=== PATIENT | female | born 1945 | race Caucasian/White ===

== ENCOUNTER 2017-09-27 08:30 | Inpatient (IN) ==
[2017-09-24 16:33] LABS: Appearance,Urine CLEAR; Bacteria,Urine FEW /hpf (0); Bilirubin,Urine NEG (NEG); Color,Urine YELLOW; Glucose,Urine (UA) NEGATIVE (NEG); Leukocyte Esterase,Urine NEG /uL (NEG); Mucus,Urine FEW /hpf (0); Nitrate,Urine POS (NEG); Protein,Urine NEG (NEG); Specific Gravity,Urine 1.019 (1.000-1.035); Urine Blood NEG mg/dL (<0.03); Urine RBC 1 /hpf (0-1); Urine Squamous Epithelial Cell < 1 /hpf (0-4); Urine WBC 5 /hpf (0-4); Urobilinogen,Urine NEG (NEG)
[2017-09-24 17:29] LABS: Basophils # (Auto) 0.1 K/mcL (0.0-0.3); Basophils % (Auto) 0.7 % (0.0-2.0); Eosinophils # (Auto) 0.2 K/mcL (0.0-0.7); Eosinophils % (Auto) 3.3 % (0.0-7.0); Granulocytes % (Auto) 65.7 % (38.0-78.0); Lymphocytes # (Auto) 1.7 K/mcL (1.5-4.8); Lymphocytes % (Auto) 23.2 % (15.5-49.0); Mean Cell Volume 86.9 fL (80.0-100.0); Mean Corpuscular HGB Conc 34.3 g/dL (31.0-36.0); Mean Corpuscular Hemoglobin 29.8 pg (26.0-34.0); Monocytes # (Auto) 0.5 K/mcL (0.1-0.9); Monocytes % (Auto) 7.1 % (1.0-12.0); Platelet Count 234 K/mcL (140-440); RBC 4.49 M/mcL (4.00-5.20); Red Cell Distribution Width 12.4 % (11.5-14.5)
[2017-09-24 17:32] LABS: Blood Urea Nitrogen 15 mg/dl (8-23)
[~2017-09-27 08:30] MED LIST: 0.9 % SODIUM CHLORIDE 250 ML IV SCH; CELECOXIB 200 MG CAPSULE PO SCH; KETOROLAC 30 MG, ROPIVACAINE HCL/PF 49.5 ML, EPINEPHrine 0.5 MG, 0.9 % SODIUM CHLORIDE ... IJ SCH; PREGABALIN 75 MG CAPSULE PO SCH; ceFAZolin 1 GM VIAL IV SCH; oxyCODONE 10 MG TAB.ER.12H PO SCH
[2017-09-27 11:25] LABS: Appearance,Urine HAZY; Bacteria,Urine 0 /hpf (0); Bilirubin,Urine NEG (NEG); Color,Urine YELLOW; Glucose,Urine (UA) NEGATIVE (NEG); Leukocyte Esterase,Urine NEG /uL (NEG); Mucus,Urine FEW /hpf (0); Nitrate,Urine NEG (NEG); Protein,Urine NEG (NEG); Specific Gravity,Urine 1.024 (1.000-1.035); Urine Amorphous Crystals FEW /hpf (0); Urine Blood NEG mg/dL (<0.03); Urine RBC 1 /hpf (0-1); Urine Squamous Epithelial Cell < 1 /hpf (0-4); Urine WBC 1 /hpf (0-4); Urobilinogen,Urine NEG (NEG)
[2017-09-27] MEDS ORDERED: rOPINIRole 0.25 MG TABLET PO ONE (12:27)
[2017-09-27] MEDS ORDERED: MIDAZOLAM 2 MG/2 ML VIAL IV ONE (14:15)
[2017-09-27] MEDS ORDERED: ONDANSETRON 4 MG/2 ML VIAL IV ONE (14:15)
[2017-09-27] MEDS ORDERED: GLYCOPYRROLATE 0.2 MG/ML VIAL IV ONE (14:15)
[2017-09-27] MEDS ORDERED: DEXAMETHASONE 10 MG/ML VIAL IV ONE (14:15)
[2017-09-27] MEDS ORDERED: BUPIVACAINE PF 0.5% 30 ML VIAL IJ ONE (14:15)
[2017-09-27] MEDS ORDERED: PROPOFOL 200 MG/20 ML VIAL IV ONE (14:15)
[2017-09-27] MEDS ORDERED: PHENYLEPHRINE 10 MG/ML VIAL IV ONE (14:15)
[2017-09-27] MEDS ORDERED: TRANEXAMIC ACID 1,000 MG/10 ML VIAL IV ONE (14:15)
[2017-09-27] MEDS ORDERED: KETAMINE 100 MG/ML ML IV ONE (14:15)
[2017-09-27] MEDS ORDERED: LIDOCAINE HCL/PF 100 MG/5 ML SYRINGE IV ONE (14:15)
[2017-09-27] MEDS ORDERED: ePHEDrine 50 MG/ML AMPUL IV ONE (14:15)
[2017-09-27] MEDS ORDERED: GENTAMICIN SULFATE 800 MG/20 ML VIAL IR ONE (14:35)
[2017-09-27] MEDS ORDERED: PROMETHAZINE 25 MG/ML VIAL IV PRN (15:19)
[2017-09-27] MEDS ORDERED: LACTATED RINGERS 250 ML IV PRN (15:19)
[2017-09-27] MEDS ORDERED: MEPERIDINE 25 MG/ML SYRINGE IV PRN (15:19)
[2017-09-27] MEDS ORDERED: fentaNYL 100 MCG/2 ML VIAL IV PRN (15:19)
[2017-09-27] MEDS ORDERED: ONDANSETRON 4 MG/2 ML VIAL IV PRN ×2 (15:19→15:55)
[2017-09-27] MEDS ORDERED: IPRATROPIUM/ALBUTEROL 3 ML AMPUL.NEB NEB PRN (15:19)
[2017-09-27] MEDS ORDERED: NALOXONE HCL 0.4 MG/ML VIAL IV PRN (15:19)
[2017-09-27] MEDS ORDERED: ACETAMINOPHEN 1,000 MG/100 ML BOTTLE IV ONE (15:19)
[2017-09-27] MEDS ORDERED: FLUMAZENIL 0.1 MG/ML ML IV PRN (15:19)
[2017-09-27] MEDS ORDERED: LACTATED RINGERS 1,000 ML IV SCH (15:30)
[2017-09-27] MEDS ORDERED: ALBUTEROL SULFATE 1 PUFF INHALER INH PRN (15:53)
--- NOTE | 2017-09-27 15:53 | Brief Operative Note ---
Date of procedure: 09/27/17 Pre-op diagnosis: right knee oa Post-op diagnosis: same Procedure: right total knee arthroplasty Grafts/Implants: Yes Anesthesia: spinal Complications: none Surgeon: Hubert Mckeon Apparel Fashion Designer: Vangie Jones Estimated blood loss (cc): 150 Tourniquet Time (Minutes): 63 Specimens Removed/Pathology: none sent Condition: stable Disposition: PACU
[2017-09-27] MEDS ORDERED: HYDROmorphone 2 MG/ML SYRINGE IV PRN (15:55)
[2017-09-27] MEDS ORDERED: DEXTROSE 50% 50 ML VIAL IV PRN (15:55)
[2017-09-27] MEDS ORDERED: BENZOCAINE/MENTHOL 1 LOZENGE PO PRN (15:55)
[2017-09-27] MEDS ORDERED: DEXTROSE 31 GM ORAL.SUSP PO PRN (15:55)
[2017-09-27] MEDS ORDERED: POLYETHYLENE GLYCOL 3350 17 GM PACKET PO PRN (15:55)
[2017-09-27] MEDS ORDERED: FLEETS ADULT ENEMA PR PRN (15:55)
[2017-09-27] MEDS ORDERED: MAGNESIUM HYDROXIDE 30 ML ORAL.SUSP PO PRN (15:55)
[2017-09-27] MEDS ORDERED: BISACODYL 10 MG SUPP.RECT PR PRN (15:55)
[2017-09-27] MEDS ORDERED: TRANEXAMIC ACID 1,000 MG/10 ML VIAL IV SCH (15:55)
--- NOTE | 2017-09-27 16:56 | XRay Report ---
CLINICAL INFORMATION: Postop total knee prostheses COMPARISON: None. FINDINGS: Total knee prostheses is anatomically aligned. There is no osseous abnormality. Periarticular gas and soft tissue swelling seen - as expected IMPRESSION: Negative Interpreted and Authenticated by: Hubert Dover 09/27/17
[2017-09-27] MEDS: 0.9 % SODIUM CHLORIDE 1,000 ML IV SCH (17:27)
[2017-09-27] MEDS: INSULIN LISPRO 1 UNIT/0.01 ML UNIT SQ SCH ×2 (17:27→21:36)
[2017-09-27] MEDS: metFORMIN 500 MG TABLET PO SCH (17:28)
[2017-09-27] MEDS: KETOROLAC 15 MG/ML VIAL IV SCH (17:29)
[2017-09-27] MEDS: DOCUSATE SODIUM 100 MG CAPSULE PO SCH (21:37)
[2017-09-27] MEDS: SENNOSIDES 1 TABLET PO SCH (21:37)
[2017-09-27] MEDS: ceFAZolin 1 GM VIAL IV SCH (21:38)
[2017-09-27] MEDS: ASPIRIN 325 MG ENTERIC COATED TABLET PO SCH (21:38)
[2017-09-27] MEDS: 0.9 % SODIUM CHLORIDE 10 ML SYRINGE IV SCH (21:39)
[2017-09-27] MEDS: HYDROcodone/APAP 10/325MG TABLET PO PRN (21:40)
[2017-09-28] MEDS: 0.9 % SODIUM CHLORIDE 1,000 ML IV SCH ×3 (00:19→14:37)
[2017-09-28] MEDS: KETOROLAC 15 MG/ML VIAL IV SCH ×4 (00:24→17:08)
[2017-09-28] MEDS: ceFAZolin 1 GM VIAL IV SCH (05:18)
[2017-09-28] MEDS: 0.9 % SODIUM CHLORIDE 10 ML SYRINGE IV SCH ×3 (05:18→20:48)
[2017-09-28] MEDS: METHOCARBAMOL 750 MG TABLET PO PRN ×2 (05:18→21:27)
[2017-09-28] MEDS: GLIMEPIRIDE 2 MG TABLET PO SCH (07:12)
[2017-09-28] MEDS: INSULIN LISPRO 1 UNIT/0.01 ML UNIT SQ SCH ×4 (07:12→20:48)
[2017-09-28] MEDS: metFORMIN 500 MG TABLET PO SCH ×2 (07:12→17:08)
--- NOTE | 2017-09-28 08:27 | Orthopedic Progress Note ---
Subjective Patient information: Note initiated : 09/28/17 at 8:26 am Service Date, if different from initiated Date: [] Patient: Dee Montes 72 y/o F admitted on 09/27/17 for Total Knee Arthroplasty - Right. Chief Complaint: [] Interval history: doing ok today. some pain Objective Vital signs: Vital Signs Temp Pulse Resp BP BP Pulse Ox 09/28/17 07:37 98.2 F 12 122/66 96 09/28/17 04:48 97.4 F 108 H 18 130/68 98 09/28/17 02:05 17 94 09/28/17 00:47 97.2 F 112 H 17 132/72 94 09/27/17 20:00 92 09/27/17 19:25 97.2 F 108 H 18 132/66 92 09/27/17 19:15 97.2 F 108 H 19 150/76 94 09/27/17 19:00 108 H 17 153/81 94 09/27/17 18:45 108 H 17 155/78 95 09/27/17 18:15 110 H 17 146/73 94 09/27/17 18:00 105 H 18 146/78 96 09/27/17 17:51 134/66 96 09/27/17 17:45 136/76 96 09/27/17 17:15 146/76 95 09/27/17 17:00 96.4 F L 12 132/66 92 09/27/17 16:46 105 H 14 130/70 98 09/27/17 16:41 105 H 12 114/62 100 09/27/17 16:36 103 H 13 120/59 96 09/27/17 16:21 104 H 13 130/64 96 09/27/17 16:16 100 H 12 115/60 95 09/27/17 16:11 98 H 12 102/57 97 09/27/17 16:06 97.9 F 99 H 12 114/54 97 09/27/17 10:07 97.9 F 96 H 18 165/78 93 Intake and Output 09/27/17 09/28/17 09/28/17 21:59 05:59 13:59 Intake Total 1400 / 1400 650 / 650 Output Total 327 / 327 Balance 1400 / 1400 323 / 323 Intake: IV 1400 / 1400 Lactated Ringers 1,000 ml @ 20 1300 / 1300 mls/hr IV .Q24H SYLVIE Rx#: [id number] Oral 650 / 650 Output: Void Amount 325 / 325 # of times incontinent of urine 2 / 2 Other: # Voids 1 Weight 245 lb 8 oz Intake & Output: Intake & Output 09/27/17 09/28/17 09/28/17 21:59 05:59 13:59 Intake Total 1400 / 1400 650 / 650 Output Total 327 / 327 Balance 1400 / 1400 323 / 323 Weight 245 lb 8 oz Intake: IV 1400 / 1400 Lactated Ringers 1,000 ml @ 20 1300 / 1300 mls/hr IV .Q24H SYLVIE Rx#: [id number] Oral 650 / 650 Output: Void Amount 325 / 325 # of times incontinent of urine 2 / 2 Other: # Voids 1 Incision: Yes healing Incision clean and dry: Yes Dressing: Yes clean, Yes dry, Yes intact Weight bearing status: full Neurological exam IM: Yes abnormal gait, Yes alert, Yes oriented X3, Yes motor sensory intact, Yes neurovascular intact Extremities exam IM: No calf tenderness, Yes joint swelling, Yes Foot pink and warm, Yes neurovascular intact - Labs CBC & BMP: 09/28/17 05:06 09/24/17 15:03 Labs: Orthopedic Labs 09/24/17 15:03 PT 12.1 INR 0.9 09/28/17 09/24/17 05:06 15:03 Hgb 12.1 13.4 Hct 35.9 L 39.0
[2017-09-28] MEDS ORDERED: rOPINIRole 0.25 MG TABLET PO SCH ×2 (09:00→21:00)
[2017-09-28] MEDS: ASPIRIN 325 MG ENTERIC COATED TABLET PO SCH ×2 (09:11→20:48)
[2017-09-28] MEDS: HYDROcodone/APAP 10/325MG TABLET PO PRN ×3 (09:11→20:48)
[2017-09-28] MEDS: DOCUSATE SODIUM 100 MG CAPSULE PO SCH ×2 (09:11→20:48)
[2017-09-28] MEDS: rOPINIRole 0.25 MG TABLET PO SCH (09:11)
[2017-09-28] MEDS: LOSARTAN 50 MG TABLET PO SCH (09:11)
[2017-09-28] MEDS: HYDROCHLOROTHIAZIDE 25 MG TABLET PO SCH (09:12)
[2017-09-28] MEDS: PARoxetine 20 MG TABLET PO SCH (09:12)
[2017-09-28] MEDS: SENNOSIDES 1 TABLET PO SCH (20:46)
[2017-09-29] MEDS: KETOROLAC 15 MG/ML VIAL IV SCH ×3 (00:30→12:37)
[2017-09-29] MEDS: 0.9 % SODIUM CHLORIDE 1,000 ML IV SCH ×3 (00:30→16:40)
[2017-09-29] MEDS: HYDROcodone/APAP 10/325MG TABLET PO PRN ×5 (03:22→20:51)
[2017-09-29] MEDS: METHOCARBAMOL 750 MG TABLET PO PRN ×2 (04:32→12:37)
[2017-09-29] MEDS: 0.9 % SODIUM CHLORIDE 10 ML SYRINGE IV SCH ×3 (06:36→20:52)
[2017-09-29] MEDS: INSULIN LISPRO 1 UNIT/0.01 ML UNIT SQ SCH ×4 (07:35→20:52)
[2017-09-29] MEDS: metFORMIN 500 MG TABLET PO SCH ×2 (07:36→17:42)
[2017-09-29] MEDS: HYDROCHLOROTHIAZIDE 25 MG TABLET PO SCH (08:13)
[2017-09-29] MEDS: rOPINIRole 0.25 MG TABLET PO SCH ×4 (08:13→20:51)
[2017-09-29] MEDS: LOSARTAN 50 MG TABLET PO SCH (08:13)
[2017-09-29] MEDS: GLIMEPIRIDE 2 MG TABLET PO SCH (08:14)
[2017-09-29] MEDS: PARoxetine 20 MG TABLET PO SCH (08:14)
[2017-09-29] MEDS: DOCUSATE SODIUM 100 MG CAPSULE PO SCH ×2 (08:14→20:50)
[2017-09-29] MEDS: ASPIRIN 325 MG ENTERIC COATED TABLET PO SCH ×2 (08:14→20:51)
--- NOTE | 2017-09-29 08:44 | Orthopedic Progress Note ---
Subjective Patient information: Note initiated : 09/29/17 at 8:42 am Service Date, if different from initiated Date: [] Patient: Dee Montes 72 y/o F admitted on 09/27/17 for Total Knee Arthroplasty - Right. Chief Complaint: [] Interval history: more painful today. feels a little groggy Objective Vital signs: Vital Signs Temp Pulse Resp BP BP BP Pulse Ox 09/29/17 06:29 97.8 F 18 136/72 98 09/29/17 03:30 97 F 99 H 18 144/76 92 09/29/17 00:00 97.2 F 96 H 18 129/75 98 09/28/17 20:00 98.6 F 95 H 18 133/84 93 09/28/17 16:00 98.6 F 102 H 16 103/72 95 09/28/17 11:15 97.8 F 18 105/54 94 Intake and Output 09/28/17 09/29/17 09/29/17 21:59 05:59 13:59 Intake Total 1070 / 1070 600 / 600 320 / 320 Output Total 400 / 400 750 / 750 750 / 750 Balance 670 / 670 -150 / -150 -430 / -430 Intake: Oral 1070 / 1070 600 / 600 320 / 320 Output: Void Amount 400 / 400 750 / 750 750 / 750 Other: Meal Dinner Breakfast Percent of Meal Consumed 100% 100% Feeding Ability Independent Independent # Voids 1 1 Weight 245 lb 8 oz Intake & Output: Intake & Output 09/28/17 09/29/17 09/29/17 21:59 05:59 13:59 Intake Total 1070 / 1070 600 / 600 320 / 320 Output Total 400 / 400 750 / 750 750 / 750 Balance 670 / 670 -150 / -150 -430 / -430 Weight 245 lb 8 oz Intake: Oral 1070 / 1070 600 / 600 320 / 320 Output: Void Amount 400 / 400 750 / 750 750 / 750 Other: Meal Dinner Breakfast Percent of Meal Consumed 100% 100% Feeding Ability Independent Independent # Voids 1 1 Incision: Yes healing Incision clean and dry: Yes Dressing: Yes clean, Yes dry, Yes intact Weight bearing status: full Neurological exam IM: Yes abnormal gait, Yes alert, Yes oriented X3, Yes motor sensory intact, Yes neurovascular intact Extremities exam IM: No calf tenderness, Yes Foot pink and warm, Yes neurovascular intact - Labs CBC & BMP: 09/29/17 04:40 09/24/17 15:03 Labs: Orthopedic Labs 09/24/17 15:03 PT 12.1 INR 0.9 09/29/17 09/28/17 09/24/17 04:40 05:06 15:03 Hgb 10.7 L 12.1 13.4 Hct 31.7 L 35.9 L 39.0 Assessment and Plan (1) Knee osteoarthritis pod 2 s/p tka wbat pain control dvt prophylaxis d/c planning - rehab when bed available Status: Acute
--- NOTE | 2017-09-29 08:45 | Discharge Summary ---
Ortho Discharge - TKA - Patient Instructions Diet: Regular Diet Activity: activity as tolerated, ambulate with assistive device, weight bearing as tolerated Total Knee Protocol: For Total Knee: Start ROM DENIA with stationary bike or rocking chair. Work on gaining full extension of knee. Posterior dislocation precautions provided. Hip abductor strengthening and gait training instructions provided. Apply Cryocuff as instructed. Dressing Care: Aquacel Ag - leave on for 5 days - Problem Maintenance (1) Knee osteoarthritis Status: Acute - Follow Up Plan Follow Up Appointments: Hubert Mckeon MD [Physician] - 10/09/17 10:30 am Disposition: Xfer SNF Prognosis: Good Rehab Potential: Good I certify that the patient requires SNF services: Yes Overall status at discharge: patient is progressing back to baseline
[2017-09-29] MEDS: SENNOSIDES 1 TABLET PO SCH (20:51)
[2017-09-30] MEDS: 0.9 % SODIUM CHLORIDE 1,000 ML IV SCH (00:12)
[2017-09-30] MEDS: 0.9 % SODIUM CHLORIDE 10 ML SYRINGE IV SCH ×3 (05:46→20:44)
[2017-09-30] MEDS: HYDROcodone/APAP 10/325MG TABLET PO PRN ×4 (06:12→20:23)
[2017-09-30] MEDS: LOSARTAN 50 MG TABLET PO SCH (07:53)
[2017-09-30] MEDS: HYDROCHLOROTHIAZIDE 25 MG TABLET PO SCH (07:54)
[2017-09-30] MEDS: PARoxetine 20 MG TABLET PO SCH (07:54)
[2017-09-30] MEDS: metFORMIN 500 MG TABLET PO SCH ×2 (07:54→17:01)
[2017-09-30] MEDS: DOCUSATE SODIUM 100 MG CAPSULE PO SCH ×2 (07:54→20:25)
[2017-09-30] MEDS: ASPIRIN 325 MG ENTERIC COATED TABLET PO SCH ×2 (07:54→20:24)
[2017-09-30] MEDS: rOPINIRole 0.25 MG TABLET PO SCH ×3 (07:54→20:25)
[2017-09-30] MEDS: GLIMEPIRIDE 2 MG TABLET PO SCH (07:55)
[2017-09-30] MEDS: INSULIN LISPRO 1 UNIT/0.01 ML UNIT SQ SCH ×4 (07:55→20:44)
--- NOTE | 2017-09-30 09:17 | Orthopedic Progress Note ---
Subjective Patient information: Note initiated : 09/30/17 at 9:16 am Service Date, if different from initiated Date: [] Patient: Dee Montes 72 y/o F admitted on 09/27/17 for Total Knee Arthroplasty - Right. Chief Complaint: [] Interval history: doing well. still painful but improving Objective Vital signs: Vital Signs Temp Pulse Resp BP BP BP Pulse Ox 09/30/17 08:00 98.7 F 20 152/64 99 09/30/17 03:42 97.6 F 97 H 18 153/75 99 09/29/17 23:27 98.5 F 101 H 18 121/70 98 09/29/17 18:51 98.1 F 99 H 17 144/78 91 09/29/17 15:26 98.2 F 20 134/71 96 09/29/17 11:45 97.6 F 18 121/69 98 Intake and Output 09/29/17 09/30/17 09/30/17 21:59 05:59 13:59 Intake Total 1760 / 1760 300 / 300 880 / 880 Output Total 651 / 651 975 / 975 500 / 500 Balance 1109 / 1109 -675 / -675 380 / 380 Intake: Oral 1760 / 1760 300 / 300 880 / 880 Output: Void Amount 650 / 650 975 / 975 500 / 500 # of times incontinent of urine 1 / Other: Meal Lunch Breakfast Percent of Meal Consumed 100% 100% Feeding Ability Independent # Voids 1 1 # Bowel Movements 1 1 Weight 255 lb Intake & Output: Intake & Output 09/29/17 09/30/17 09/30/17 21:59 05:59 13:59 Intake Total 1760 / 1760 300 / 300 880 / 880 Output Total 651 / 651 975 / 975 500 / 500 Balance 1109 / 1109 -675 / -675 380 / 380 Weight 255 lb Intake: Oral 1760 / 1760 300 / 300 880 / 880 Output: Void Amount 650 / 650 975 / 975 500 / 500 # of times incontinent of urine 1 / 1 Other: Meal Lunch Breakfast Percent of Meal Consumed 100% 100% Feeding Ability Independent # Voids 1 1 # Bowel Movements 1 1 Incision: Yes healing Incision clean and dry: Yes Dressing: Yes clean, Yes dry, Yes intact Weight bearing status: full Neurological exam IM: Yes abnormal gait, Yes alert, Yes oriented X3, Yes motor sensory intact, Yes neurovascular intact Extremities exam IM: No calf tenderness, Yes Foot pink and warm, Yes neurovascular intact - Labs CBC & BMP: 09/30/17 04:50 09/24/17 15:03 Labs: Orthopedic Labs 09/24/17 15:03 PT 12.1 INR 0.9 09/30/17 09/29/17 09/28/17 04:50 04:40 05:06 Hgb 10.7 L 10.7 L 12.1 Hct 32.2 L 31.7 L 35.9 L 09/24/17 15:03 Hgb 13.4 Hct 39.0 Assessment and Plan (1) Knee osteoarthritis pod 3 s/p tka wbat pain control dvt prophylaxis d/c planning - rehab when bed available Status: Acute
[2017-09-30] MEDS: SENNOSIDES 1 TABLET PO SCH (20:27)
[2017-10-01] MEDS: HYDROcodone/APAP 10/325MG TABLET PO PRN ×2 (02:01→06:40)
[2017-10-01] MEDS: 0.9 % SODIUM CHLORIDE 10 ML SYRINGE IV SCH (06:54)
[2017-10-01] MEDS: INSULIN LISPRO 1 UNIT/0.01 ML UNIT SQ SCH (06:54)
[2017-10-01] MEDS: GLIMEPIRIDE 2 MG TABLET PO SCH (08:37)
[2017-10-01] MEDS: HYDROCHLOROTHIAZIDE 25 MG TABLET PO SCH (08:37)
[2017-10-01] MEDS: rOPINIRole 0.25 MG TABLET PO SCH (08:37)
[2017-10-01] MEDS: DOCUSATE SODIUM 100 MG CAPSULE PO SCH (08:37)
[2017-10-01] MEDS: metFORMIN 500 MG TABLET PO SCH (08:37)
[2017-10-01] MEDS: ASPIRIN 325 MG ENTERIC COATED TABLET PO SCH (08:37)
[2017-10-01] MEDS: PARoxetine 20 MG TABLET PO SCH (08:37)
[2017-10-01] MEDS: LOSARTAN 50 MG TABLET PO SCH (08:37)
--- NOTE | 2017-10-01 08:59 | Orthopedic Progress Note ---
Subjective Patient information: Note initiated : 10/01/17 at 8:58 am Service Date, if different from initiated Date: [] Patient: Dee Montes 72 y/o F admitted on 09/27/17 for Total Knee Arthroplasty - Right. Chief Complaint: [] Interval history: doing fine today Objective Vital signs: Vital Signs Temp Pulse Resp BP BP Pulse Ox 10/01/17 07:42 97 F 20 152/51 90 10/01/17 04:00 97.6 F 91 H 20 135/77 91 09/30/17 23:53 98.1 F 100 H 20 131/74 91 09/30/17 19:54 98.2 F 93 H 22 162/83 96 09/30/17 15:21 97.7 F 20 148/71 98 09/30/17 11:29 96.9 F L 16 124/59 93 Intake and Output 09/30/17 10/01/17 10/01/17 21:59 05:59 13:59 Intake Total 600 / 600 650 / 650 Output Total 600 / 600 850 / 850 Balance 0 / 0 -200 / -200 Intake: Oral 600 / 600 650 / 650 Output: Void Amount 600 / 600 850 / 850 Other: # Voids 1 # Bowel Movements 2 Weight 254 lb Intake & Output: Intake & Output 09/30/17 10/01/17 10/01/17 21:59 05:59 13:59 Intake Total 600 / 600 650 / 650 Output Total 600 / 600 850 / 850 Balance 0 / 0 -200 / -200 Weight 254 lb Intake: Oral 600 / 600 650 / 650 Output: Void Amount 600 / 600 850 / 850 Other: # Voids 1 # Bowel Movements 2 Incision: Yes healing Incision clean and dry: Yes Dressing: Yes clean, Yes dry, Yes intact Weight bearing status: full Neurological exam IM: Yes alert, Yes normal gait, Yes oriented X3, Yes motor sensory intact, Yes neurovascular intact Extremities exam IM: No calf tenderness, Yes Foot pink and warm, Yes neurovascular intact - Labs CBC & BMP: 09/30/17 04:50 09/24/17 15:03 Labs: Orthopedic Labs 09/24/17 15:03 PT 12.1 INR 0.9 09/30/17 09/29/17 09/28/17 04:50 04:40 05:06 Hgb 10.7 L 10.7 L 12.1 Hct 32.2 L 31.7 L 35.9 L 09/24/17 15:03 Hgb 13.4 Hct 39.0 Assessment and Plan (1) Knee osteoarthritis pod43 s/p tka wbat pain control dvt prophylaxis d/c planning - rehab today Status: Acute
--- NOTE | 2017-10-01 09:27 | Operative Note ---
DATE OF OPERATION: 09/27/2017 PREOPERATIVE DIAGNOSIS: Degenerative joint disease, right knee. POSTOPERATIVE DIAGNOSIS: Degenerative joint disease, right knee. PROCEDURE: Right total knee arthroplasty. SURGEON: Kelsy Mckeon M.D. [employer] MAN SURGEON: Vangie Jones PA-C ANESTHESIA: Spinal with LMA assist. ESTIMATED BLOOD LOSS: COMPLICATIONS: None noted. SPECIMENS REMOVED: None. DRAINS: None. TOURNIQUET TIME: 63 minutes at 300 mmHg. IMPLANTS: DePuy CMW2 gentamycin bone cement 20 grams x4, DePuy Attune tibial base fixed bearing size 5 cemented, DePuy Attune patella medialized dome 38 mm cemented AOX, DePuy Attune tibial insert fixed bearing posterior stabilized size 6, 5 mm AOX, DePuy Attune femoral posterior stabilized size 6 right narrow. INDICATIONS: The patient has had a long-standing history of worsening pain in the knee that has failed conservative treatment. Radiographs have confirmed advanced degenerative joint disease. After a long discussion about treatment options, the patient elected to proceed with a knee arthroplasty. The risks and benefits were discussed with the patient in detail including, but not limited to, the risks of anesthesia, problems with the heart or lungs related to anesthesia, infection, compromise or injury to the nerves and blood vessels, deep venous thrombosis, pulmonary embolism, pneumonia, continued pain after surgery, worsening pain or symptoms after surgery, swelling, loss of motion, instability, leg length discrepancy, and need for repeat surgery. DESCRIPTION OF PROCEDURE: The patient was seen in the pre-anesthesia waiting room where all questions were answered and the correct side and site were identified and marked. The patient was transferred to the operating room and administered the anesthetic and given pre-operative antibiotics. A time-out was then called. The extremity was prepped and draped, exsanguinated, and the tourniquet was inflated to 300 mmHg. A midline skin incision was then made with a standard medial parapatellar arthrotomy. Debridement of the menisci, ACL, and PCL was performed followed by balancing releases in the medial lateral plane. We then established intramedullary access to both the femur and tibia in a standard fashion. The femoral guide shahbaz was initially placed with the distal femoral guide, pinned into place, and the distal femoral cut was performed and checked with a flat plate. We then turned our attention to the tibia. The intramedullary guide was placed with the proximal tibial cutting block. The block was appropriately positioned off the affected side, varus and valgus was checked with the extra-medullary guide, and the block was pinned into place. The proximal tibial cut was performed and the tibia was prepared for the tibial implant with appropriate rotation. The tibia, femur, and posterior compartment were debrided of osteophytes, loose bodies, and meniscal fragments We then used the gap balancing technique to balance extension with the first two cuts and good balancing was obtained with a 10 millimeter gap block. We turned our attention back to the femur and used the referencing block and implant to size appropriately. Using the gap balancing technique for the flexion space we set our rotation of the femur off the tibial cut. Anesthesia gave the patient 1 gram of Tranexamic Acid via an intravenous route. We placed the 4 in 1 cutting block and made anterior, posterior, and chamfer cuts. Box plasty cuts were then made in a standard fashion for the posterior stabilized prosthesis. We then completed osteophyte release and posterior capsule release from the posterior compartment. Trials were placed and we chose the polyethylene insert thickness that provided the best stability in all planes. With the trials in place, we did a measured resection for a resurfacing patella. We sized the patella and placed the patella trial and performed a lateral facetectomy with the saw and rongeur. Good tracking was obtained. We removed all trials, irrigated and dried all cut surfaces. We cemented the components into place including tibia, femur and patella. We placed a trial liner and held the knee in full extension with the patella compressed while the cement cured. We then removed all excess cement and placed the final polyethylene tibiofemoral component. Irrigation with 3 liters of antibiotic saline was then performed using jet-lavage. We let the tourniquet down and coagulated bleeding vessels. We injected a 100 cubic centimeter volume including Ropivacaine 49.25 cubic centimeters at 5 milligrams per cubic centimeter, Ketorolac 30 milligrams, and Epinephrine 0.5 milligrams into 100 cubic centimeters volume of normal saline. We closed the retinaculum with #2 Stratafix. We closed the subcutaneous tissue and skin in layers out to albino in the skin. A sterile pressure dressing was applied. All needle and sponge counts were correct. The patient was transferred to the recovery room in stable condition. SOSA:héctor Job ID: [id number] Doc ID: [id number] Kelsy Mckeon MD
== END 2017-10-01 10:15 | DRG 470 ==
LOC: MEDSUR 10:07
PROVIDERS: ADMIT Orthopaedic Surgery Sports Medicine; ATTEND Orthopaedic Surgery Sports Medicine